=== PATIENT | female | born 1985 | race Caucasian/White ===

== ENCOUNTER 2018-11-16 06:18 | Day surgery (SDC) | payer SELFPAY ==
[2018-11-05 12:28] VITALS: BMI 18.7
[2018-11-16] MEDS ORDERED: oxyCODONE HCL 5 MG TABLET PO PRN (07:17)
[2018-11-16] MEDS ORDERED: ONDANSETRON 4 MG/2 ML VIAL IVPUSH PRN (07:17)
[2018-11-16] MEDS ORDERED: LACTATED RINGERS SOLUTION 1,000 ML IV SCH (07:30)
[2018-11-16] MEDS ORDERED: BACITRACIN 15 GM TUBE TOPICAL OINTMENT ONE (07:40)
[2018-11-16] MEDS ORDERED: BUPIVACAINE HCL/PF 2.5 MG/ML - 30 ML VIAL IJ ONE (07:41)
[2018-11-16] MEDS ORDERED: LIDOCAINE 1%/EPI 1:100000 (20 ML MULTI DOSE VIAL) ONE (07:42)
[2018-11-16] MEDS ORDERED: LIDOCAINE HCL/PF 2% SDV 5ML VIAL ONE (08:38)
[2018-11-16] MEDS ORDERED: DEXAMETHASONE SOD PHOSPHATE 4 MG/1 ML VIAL ONE (08:38)
[2018-11-16] MEDS ORDERED: ONDANSETRON 4 MG/2 ML VIAL ONE ×2 (08:38→13:02)
[2018-11-16] MEDS ORDERED: ROCURONIUM BROMIDE 50 MG/5 ML SYRINGE ONE (08:39)
[2018-11-16] MEDS ORDERED: MIDAZOLAM HCL 2 MG/2 ML SINGLE DOSE VIAL ONE ×2 (08:39)
[2018-11-16] MEDS ORDERED: PROPOFOL 20 ML ONE ×10 (08:39→12:59)
[2018-11-16] MEDS ORDERED: SUCCINYLCHOLINE CHLORIDE 200 MG/10 ML SYRINGE ONE (08:39)
[2018-11-16] MEDS ORDERED: SCOPOLAMINE HYDROBROMIDE 1 PATCH PATCH.TD72 ONE (08:47)
[2018-11-16] MEDS ORDERED: ceFAZolin SODIUM 1 GM VIAL ONE (13:19)
[2018-11-16 15:40] VITALS: TEMP 98.3
[2018-11-16] MEDS ORDERED: oxyCODONE HCL 5 MG TABLET ONE (16:40)
[2018-11-16 18:30] VITALS: PULSE 64
[2018-11-16 18:34] VITALS: BP 104/64
--- NOTE | 2018-11-18 15:04 | PATH ---
Surgical Pathology Report Patient Name: JULIANE DYSON [facility]. Rec. #: [id number] /Age/Gender: 1985 (Age: 33) / F Account: [id number] Location: [facility] Taken: 11/16/2018 Received: 11/16/2018 Reported: 11/18/2018 Physicians: Deborah Calabrese M.D. Specimen(s) Received A: RIGHT AND LEFT LABIA MINORA AND CLITORAL BERRY B: RIGHT AND LEFT LABIA MAJORA Clinical History Cosmetic Final Diagnosis A. LABIA MINORA AND CLITORAL BERRY, RIGHT AND LEFT, BILATERAL LABIOALASTY AND CLITORAL BERRY REDUCTION: PORTIONS OF SKIN, DESCRIBED (GROSS EXAMINATION ONLY). B. LABIA MAJORA, RIGHT AND LEFT, BILATERAL LABIAPLASTY: PORTIONS OF SKIN, DESCRIBED (GROSS EXAMINATION ONLY). Electronically Signed Sherry Jorge M.D. Gross Description A. Received in formalin, labeled "right and left labia minora and clitoral berry" are three portions of dark tenorio skin ranging from 1.2 - 5.5 cm in greatest dimension. No gross lesions are identified. For gross examination only. B. Received in formalin, labeled "right and left labia majora" are two portions of dark tenorio skin ranging from 1.8-5.5 cm in greatest dimension. No gross lesions are identified. For gross examination only. AE/11/17/2018 ebram/11/17/2018
== END 2018-11-16 17:30 | disposition home or self-care (01) ==
LOC: FASU 06:18
PROVIDERS: ATTEND Surgery
PROC: 0JBC0ZZ Excision of Pelvic Region Subcutaneous Tissue and Fascia, Open Approach (ICD-10-PCS; 2018-11-16)
PROC: 0UBM0ZZ Excision of Vulva, Open Approach (ICD-10-PCS; principal; 2018-11-16 09:50)
DX: Z41.1 Encounter for cosmetic surgery (principal)
CPT/HCPCS: 84703; 88300-TC; 94760